=== PATIENT | male | born 1980 | race Caucasian/White ===

== ENCOUNTER 2024-08-15 17:29 | Emergency (ER) | payer SELFPAY ==
[2024-08-15] VITALS (11 sets, daily range): BP systolic 100–134; BP diastolic 59–82; PULSE 61–81; RESP 15–24; TEMP 34.1; O2SAT 97–100
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
[2024-08-15] MEDS: SODIUM CHLORIDE 0.9% IV 1,000 ML 999 ML IV CONT (17:35)
[2024-08-15] MEDS: levETIRAcetam 1500MG/NACL100ML 1,500 MG/100 ML BAG 400 MG IVPB (17:45)
[2024-08-15] MEDS: FENTANYL 2,500MCG/NS250ML(*CRX 2,500 MCG/250 ML BAG (17:51)
[2024-08-15 19:10] LABS: Basophils Percent Auto 0.2 % (0.2-1.2); Hemoglobin 12.8 g/dL (14.0-18.0); Immature Granulocyte Absolute 0.05 K/mm3 (0.00-0.031); Immature Granulocyte Percent A 0.6 % (0-0.5); Lymphocytes Absolute Auto 0.71 K/mm3 (0.9-3.2); Lymphocytes Percent Auto 7.8 % (18.3-44.2); Mean Corpuscular HGB Conc 34.6 g/dl (32-36); Mean Corpuscular Volume 98.1 fl (80-100); Mean Platelet Volume 10.3 fl (7.4-10.4); Monocytes Absolute Auto 0.4 K/mm3 (0.1-0.6); Monocytes Percent Auto 4.3 % (2.6-8.5); Neutrophils Absolute Auto 7.9 K/mm3 (1.3-6.7); Neutrophils Percent Auto 87.1 % (45.5-73.1); Platelet Count Result 172 k/mm3 (150-375); Red Blood Count 3.77 M/mm3 (4.6-6.20); Red Cell Distribution Width 13.5 % (11.5-14.5); White Blood Count 9.1 K/mm3 (4.5-10.0)
[2024-08-15 19:19] LABS: Alanine Aminotransferase 83 U/L (6-50); Albumin Level 4.2 g/dL (3.5-5.1); Alkaline Phosphatase 83 U/L (38-126); Anion Gap 16 mmol/L (4-12); Aspartate Amino Transferase 379 U/L (17-59); Bilirubin,Total 1.1 mg/dL (0.2-1.3); Blood Urea Nitrogen 60 mg/dL (9-20); Calcium 8.9 mg/dL (8.4-10.2); Carbon Dioxide 17 mmol/L (22-30); Chloride 97 mmol/L (98-107); Estimated CRCL calculation 45 ml/min; Estimated Glomerular Filt Rate 27; Glucose 103 mg/dL (65-110); Sodium 130 mmol/L (137-145)
[2024-08-15 19:23] LABS: INR 1.1; Partial Thromboplastin Time 25.5 Seconds (22.3-36.8); Prothrombin Time 14.5 Seconds (11.1-14.7)
[2024-08-15] MEDS: ETOMIDATE 20 MG/10 ML AMPUL IV PUSH (19:24)
[2024-08-15] MEDS: ROCURONIUM BROMIDE 50 MG/5 ML VIAL 100 MG IV PUSH (19:24)
[2024-08-15] MEDS: fentaNYL CITRATE INJ (*CRX) 100 MCG/2 ML VIAL 200 MCG IV PUSH (19:25)
--- NOTE | 2024-08-15 19:29 | PC.NURSE ---
Prior to intubation 100mcg of fentanyl was given at 1738, 100 Rocuronium given at 1739 along with 20 Etomidate at 1739. Vitals were HR 70 R15 134/82 98%. Dr. Hernandez bagging pt. 1735 Respiratory therapy to room. At 1740 pt was intubated. Per physicians orders 100mcg Fentanyl given. BP 135/95 HR 81 94%. Restraints were applied at 1745 to prevent patient from extubating himself. OG was started at 1474. 1500 Keppra started at 1745. At 1751 Fentanyl at 1ml/hr was started per Dr. Hdz orders. 1749 xray in room confirming placement of OG tube. This RN accompanied pt along with RT to CT. Vitals upon return were BP 119/60 HR 64 R24 100%.
[2024-08-15 19:30] LABS: Barbiturate Screen Urine Negative (Negative); Benzodiazepines Screen Urine Positive (Negative)
[2024-08-15 19:42] LABS: Add Urine Microscopic? YES; Appearance Urine Cloudy (Clear); Bacteria Urine None Seen /hpf; Bilirubin Urine Negative (Negative); Blood Urine 3+ (Negative); Color Urine Yellow (Yellow); Glucose Urine UA Negative (Negative); Ketones Urine 1+ mg/dL (Negative); Leukocyte Esterase Ur Negative LEU/UL (Negative); Nitrate Urine Negative (Negative); Protein Urine 1+ mg/dL (Negative); RBC Urine 21-50 /hpf (0-2); Specific Grav Ur 1.024 (1.001-1.035); Squamous Epithelial Cell Urine Few /hpf (Few); Urobilinogen Urine 0.2 mg/dL (<2.0); WBC Urine 0-5 /hpf (0-3)
--- NOTE | 2024-08-15 19:50 | PC.NURSE ---
Fentanyl drip continued with flight crew.
--- NOTE | 2024-08-15 19:51 | PC.NURSE ---
Report called to Pako PURCELL at [facility] at 1915. Flight crew arrived 1914. Report given along with paperwork without questions.
[2024-08-15 20:04] LABS: Cannabinoid Screen Urine Negative (Negative); Cocaine Screen Urine Negative (Negative); Methadone Screen Urine Negative (Negative); Opiate Screen Urine Negative (Negative); Phencyclidine Screen Urine Negative (Negative)
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
[2024-08-15 20:56] LABS: Amphetamine Screen Urine Positive (Negative)
[2024-08-19 14:40] LABS: Glucose Point of Care 123 mg/dl (65-105)
== END 2024-08-15 20:15 | disposition short-term general hospital (02) ==
PROVIDERS: Emergency Provider Student in an Organized Health Care Education/Training Program
DX: S06.9X9A Unspecified intracranial injury with loss of consciousness of unspecified duration, initial encounter (principal); R91.8 Other nonspecific abnormal finding of lung field; V47.5XXA Car driver injured in collision with fixed or stationary object in traffic accident, initial encounter
CPT/HCPCS: 31500; 36415; 51702; 70450; 71260; 72125; 72129; 72132; 72170; 74177; 80053; 80307; 81001; 82948; 85025; 85610; 85730; 86850; 86900; 86901; 96365; 96366; 96367; 96375; 99291; J1953; J3010; J7030; Q9967